=== PATIENT | female | born 1980 ===

== ENCOUNTER 2018-08-20 17:00 | Emergency (ER) | payer SELFPAY ==
--- NOTE | 2018-08-20 19:04 | OBDCSUM ---
Datetime: 08/20/2018 18:22 Discharged to, Provider: Home Follow up at, Provider: [facility] Disch Instr Activity: Normal activity Disch Instr Diet: Regular Discharge Time: 08/20/2018 18:26 Follow up in weeks, Provider: ultrasound 08/21/18 Disch Referrals: None Discharge Diagnosis Prov Other: NST
--- NOTE | 2018-08-20 19:05 | OBHP ---
Datetime: 08/20/2018 17:13 IP Adm Impression: , intrauterine IP Admit Plan: Observation/Evaluation; Discharge home Admit Comment, IP Provider: 37-year-old at 34.3 EGA presents from [facility] for evaluation a fter a 6/8 score on BPP (-2 for breathing). KURT 22.5. This has been compicated by inc reased LFT's (see below) and GDM uncontrolled with diet (was placed on Metformin today by Dr Stahl). History of preeclampsia, GDM and cholesystasis with previous pregnancies. Denies gush of flush from vagina, vaginal bleeding, new onset edema, headache, change in vision, vomiting and SOB. OBGYN: [facility] - Dr Stahl OBHx: 4xNSVD (,,,) PMH: GDM, pre-e, sabrina Surgical Hx: denies Allergies: denies Family Hx: denies Labs: RPR neg, HIV neg, GC/CL neg AST 270 (07/16) 28 (2/) ALT 320 (07/16) 46 (/) Bili 1.6 (07/16) 0.5 (08/15) Bile Acids 7.9 (07/16) <1.5 (08/15) Alk Phos 201 (07/16) 192 (08/15) PMH: denies PE: Gen: resting comfortably in bed, NAD VS: WNL Ext: no edema CV: RRR Resp: no respiratory distress ROS: all others negative unless otherwise noted in HPI A+P: 37-year-old at 34.3 EGA presents from [facility] for evaluation after a 6/8 score on B PP (-2 for breathing). -NST reactive, Cat I -As per Dr Bobo pt will hve f/u BPP tomorrow -ED precautions given Case seen and discussed with Dr Jorge Luis Almonte PGY1 Addendum by Dr. Kang: I have evaluated the patient independently and I agree with the above. Pelvic Type - PN: Not Done Extremities - PN: Normal Abdomen - PN: Normal Back - PN: Normal Breast - PN: Not Done Lungs - PN: Normal Heart - PN: Not Done Thyroid - PN: Not Done Neurologic - PN: Normal HEENT - PN: Normal General - PN: Normal FHR - Baseline A Provider: 130 Vital Signs Provider: Reviewed; Within Normal Limits IP Chief Complaint: evaluation NICHD Variability Prov Fetus A: Moderate 6-25bpm NICHD Accel Fetus A IP Provider: 15X15 FHR Category Provider Fetus A: Category I NICHD Decel Fetus A IP Provider: None Genitourinary Exam: Not Done DTRs - PN: Not Done
[2018-08-21 02:39] VITALS: BP 106/77; PULSE 93; RESP 18; TEMP 97.4; O2SAT 100
== END 2018-08-20 18:30 | disposition home or self-care (01) ==
LOC: H.EROB2 17:00
DX: O36.8330 Maternal care for abnormalities of the fetal heart rate or rhythm, third trimester, not applicable or unspecified (principal); Z3A.34 34 weeks gestation of pregnancy; O24.419 Gestational diabetes mellitus in pregnancy, unspecified control

== ENCOUNTER 2018-09-02 15:43 | Emergency (ER) | payer SELFPAY ==
[2018-09-02 16:09] VITALS: BMI 28.3
[2018-09-02] MEDS ORDERED: Betamethasone Soluspan 30 mg/5mL Inj Susp IM ONE (16:46)
--- NOTE | 2018-09-02 18:07 | OBHP ---
Datetime: 09/02/2018 17:16 IP Adm Impression: , intrauterine ; No Active Labor; Intact Membranes IP Chief Complaint Other: Betamethasone shot IP Admit Plan: Observation/Evaluation; Discharge home Admit Comment, IP Provider: Farzana: [id number] 37 y/o at EGA of 36.2 weeks based on LMP of 01/24/18, KALI 09/28/18 presented to OB ED instru cted to come by Dr. Stahl for a steroid shot, pt has a hx of cholestasis in and Gest DM. D enies vaginal bleeding, LOF or contractions. Reports good movement. Denies headaches, blurry v ision, chest pain, SOB, dizziness, nausea, vomiting, diarrhea, constipation or dysuria. Provider: Dr. Stahl [facility] PMHx: Cholestasis of , Gest DM Meds: PNV, Metformin 500mg BID, unknown name of medication for cholestasis (Actigal BID- based on record) FMHx: Uncles-DM Allergies: NKDA SurgHx: Denies SOCHx: Denies Smoking/Tobacco/Drugs use OBGYN: Gest DM, No hx of STD's, last pap done with reports normal 4 [2010, 2012, 2014, (2017-GDM, Cholestasis)] Labs: HIV, HBSAg, GBS, GC, CHL, RPR all negative. Rubella unknown, h/o PPD pos CXR at 28 wks- Nega tive Assessment 37 y/o at EGA of 36.2 weeks based on LMP of 01/24/18, KALI 09/28/18 presented to OB ED instru cted to come by Dr. Stahl for a steroid shot Plan: -Betamethasone 12mg IM injection x1 -Accucheck 79 -Monitor FHR tracing 150's, moderate variability, 15x15 accelerations, no decels -Pt has an appt with Dr stahl tomorrow at 1pm, instrructed to return to ED after clinic appt mathew rrow for second steroid shot Case reviewed and discussed with attending Danielle Mckeon PGY1 Addendum by Dr. Kang: I have evaluated the patient independently and I agree with the above Extremities - PN: Normal Lungs - PN: Normal Heart - PN: Normal HEENT - PN: Normal General - PN: Normal FHR - Baseline A Provider: 150's Comments, ACOG Physical Exam: GEN: Lying in bed NAD HEENT: NCAT CARD: RRR + S1S2 RESP: CTA, no wheezing, rales or rhonchi GI: Gravid, + BS, no tenderness to palpation EXT: Excoriation scabs from itching cholestasis rash B/L UE and LE. No edema, no calf tenderness Monitor FHR tracing 150's, moderate variability, 15x15 accelerations, no decels Speculum not performed IP Hx Assessment: The History has been Reviewed and is Current EGA AdmitDate IP: 36.2 Vital Signs Provider: Reviewed; Within Normal Limits IP Chief Complaint: Other NICHD Variability Prov Fetus A: Moderate 6-25bpm NICHD Accel Fetus A IP Provider: 15X15 FHR Category Provider Fetus A: Category I NICHD Decel Fetus A IP Provider: None
--- NOTE | 2018-09-02 18:11 | OBDCSUM ---
Datetime: 09/02/2018 17:13 Discharged to, Provider: Home Follow up at, Provider: Dr. Price [facility] Disch Instr Activity: Normal activity Disch Instr Diet: Regular Discharge Time: 09/02/2018 17:13 Follow up in weeks, Provider: 09/03/2018 at 1300 Discharge Diagnosis Prov Other: Encounter for preventative care, 36 weeks, cholestasis of pregnacny
[2018-09-02 21:47] VITALS: BP 120/76; PULSE 80; RESP 18; TEMP 98.2; O2SAT 100
== END 2018-09-02 17:22 | disposition home or self-care (01) ==
LOC: H.EROB2 15:43
DX: O26.613 Liver and biliary tract disorders in pregnancy, third trimester (principal); O24.419 Gestational diabetes mellitus in pregnancy, unspecified control; Z3A.36 36 weeks gestation of pregnancy; Z23 Encounter for immunization
CPT/HCPCS: 82948; 96372; 99281; J0702

== ENCOUNTER → 2018-09-03 | Emergency (ER) | payer SELFPAY ==
[~2018-09-03] MED LIST: Betamethasone Soluspan 30 mg/5mL Inj Susp IM ONE
[2018-09-03 17:17] VITALS: BMI 29.2
== END | disposition home or self-care (01) ==
LOC: H.EROB2 17:09
DX: O26.613 Liver and biliary tract disorders in pregnancy, third trimester (principal); Z23 Encounter for immunization; Z3A.36 36 weeks gestation of pregnancy
CPT/HCPCS: 96372; 99281; J0702

== ENCOUNTER 2018-09-05 22:57 | Inpatient (IN) | payer MEDICAID, SELFPAY ==
[2018-09-03 17:17] VITALS: BMI 29.2
--- NOTE | 2018-09-05 23:37 | OBHP ---
Datetime: 09/03/2018 17:41 IP Adm Impression: , intrauterine ; No Active Labor IP Chief Complaint Other: Betamethasone shot IP Admit Plan: Observation/Evaluation; Discharge home Admit Comment, IP Provider: Pt is a 37 y/o at EGA of 36.3 weeks based on LMP of 01/24/18, KALI 09/28/18 presented to OB ED instructed to come by Dr. Stahl for a 2nd steroid shot, pt has a hx of c holestasis in and Gest DM. Denies vaginal bleeding, LOF or contractions. Reports good movement. Denies headaches, blurry vision, chest pain, SOB, dizziness, nausea, vomiting, diarrhea, constipation or dysuria. Provider: Dr. Stahl [facility] PMHx: Cholestasis of , Gest DM Meds: PNV, Metformin 500mg BID, unknown name of medication for cholestasis (Actigal BID- based on record) FMHx: Uncles-DM Allergies: NKDA SurgHx: Denies SOCHx: Denies Smoking/Tobacco/Drugs use OBGYN: Gest DM, No hx of STD's, last pap done with reports normal 4 [2010, 2012, 2014, (2017-GDM, Cholestasis)] Labs: HIV, HBSAg, GBS, GC, CHL, RPR all negative. Rubella unknown, h/o PPD pos CXR at 28 wks- Nega tive Assessment 37 y/o at EGA of 36.3 weeks based on LMP of 01/24/18, KALI 09/28/18 presented to OB ED instru cted to come by Dr. Stahl for a 2nd steroid shot Plan: -Betamethasone 12mg IM injection x1 -Monitor FHR tracing 150's, moderate variability, 15x15 accelerations, no decels -D/c and follow up with Dr. Stahl next week Case reviewed and discussed with attending Danielle Mckeon PGY1 OB Hospitalist note. Pt seen and examiend with PGY1 Agree with note. She is comfortable. feels n o CTX and she feels +FM MAHNDO Extremities - PN: Normal Abdomen - PN: Normal Lungs - PN: Normal Heart - PN: Normal HEENT - PN: Normal General - PN: Normal FHR - Baseline A Provider: 150's Comments, ACOG Physical Exam: GEN: Lying in bed NAD HEENT: NCAT CARD: RRR + S1S2 RESP: CTA, no wheezing, rales or rhonchi GI: Gravid, + BS, no tenderness to palpation EXT: Excoriation scabs from itching cholestasis rash B/L UE and LE. No edema, no calf tenderness Monitor FHR tracing 150's, moderate variability, 15x15 accelerations, no decels Speculum not performed IP Hx Assessment: The History has been Reviewed and is Current EGA AdmitDate IP: 36.3 Vital Signs Provider: Reviewed; Within Normal Limits IP Chief Complaint: Other NICHD Variability Prov Fetus A: Moderate 6-25bpm NICHD Accel Fetus A IP Provider: 15X15 FHR Category Provider Fetus A: Category I NICHD Decel Fetus A IP Provider: None
[2018-09-06 01:53] LABS: BASO # 0.1 K/uL (0.0-0.2); BASO % 1.5 % (0.0-2.0); EOS # 0.1 K/uL (0.0-0.7); EOS % 0.7 % (0.0-4.0); LYMPH # 1.8 K/uL (1.0-4.3); LYMPH % 19.4 % (20.0-40.0); MEAN CELL VOLUME 76.5 fl (81.0-99.0); MEAN CORPUSCULAR HEMOGLOBIN 24.7 pg (27.0-31.0); MEAN CORPUSCULAR HGB CONC 32.2 g/dL (33.0-37.0); MEAN PLATELET VOLUME 9.9 fl (7.2-11.7); MONO # 0.6 K/uL (0.0-0.8); MONO % 7.1 % (0.0-10.0); NEUT # 6.5 K/uL (1.8-7.0); NEUT % 71.3 % (50.0-75.0); NRBC % 0.2 % (0.0-0.0); RBC 4.04 Mil/uL (3.80-5.20); RED CELL DISTRIBUTION WIDTH 15.8 % (11.5-14.5); WHITE BLOOD COUNT 9.2 K/uL (4.8-10.8)
[2018-09-06] MEDS ORDERED: OXYTOCIN/0.9 % NS 20 UNIT/1,000 ML BAG IV ONE (09:40)
[2018-09-06] MEDS ORDERED: Oxytocin 30 UNIT in NS 500 ml 30 UNITS/500 ML BAG IV ONE ×2 (09:40→13:22)
--- NOTE | 2018-09-06 13:21 | OBPN ---
Datetime: 09/06/2018 13:16 IP Progress Impression Other: GDM/ ICP IP Procedures: Sterile Vag Exam IP Progress Plan: Induction Membranes, Provider: Intact Contraction Comments Provider: irreg FHR - Baseline A Provider: 140's IP Progress Note Comment: 37 yo at 36+6 wks w/ GDM and ICP, for induction of labor s/p cytot ec x 2 FHT reassuring, GBS negative Will start pitocin Vital Signs Provider: Reviewed NICHD Accel Fetus A IP Provider: 15X15 NICHD Variability Prov Fetus A: Moderate 6-25bpm Dilatation, Provider: 3-4 Effacement, Provider: 65 Station, Provider: -2 NICHD Decel Fetus A IP Provider: None Datetime: 09/06/2018 00:57 Gestation - Est Wks by US: 36.6 FHR Category Provider Fetus A: Category I
[2018-09-06] MEDS: Lactated Ringer's 1,000 ML IV SCH ×2 (13:45→20:00)
[2018-09-06] MEDS ORDERED: Lactated Ringer's 1,000 ML IV SCH (18:45)
[2018-09-06] MEDS ORDERED: Bupivacaine HCl 0.5% PF (30 ml) Inj ONE (19:43)
[2018-09-06] MEDS ORDERED: Fentanyl/Bupivacaine HCl 250 ML EPI ONE (20:20)
[2018-09-07] MEDS ORDERED: Oxycodone/Acetaminophen 5/325 mg Tab PO PRN ×2 (00:18→03:39)
[2018-09-07] MEDS ORDERED: Benzocaine/Menthol SPRAY TOP PRN ×2 (00:18→03:39)
--- NOTE | 2018-09-07 00:33 | OBDS ---
MATERNAL INFORMATION Provider Comments: 37 year old admitted for IOL secondary to GDM and cholestasis of . Progressed to normal spontaneous vaginal delivery at 37.0 weeks of live female infact, position EBENEZER o loren intact perineum with epidural anesthesia. Infant placed on maternal abdomen and delayed cord clam ping was performed. No excessive resuscitation required, Apgras 9 _ 9. No meconium or nuchal cord. Sp ontaneous delivery of placenta with 3-vessel cord. No lacerations. QBL 50cc. Mom and baby are in stab le condition and will be transferred to . Lory Swenson MD OB Fellow OB Hospitalist Addendum: I was present for this delivery. (ES) LABOR SUMMARY EDC: 09/28/2018 00:00 No. Babies in Womb: 1 LABOR INFORMATION Cervical Ripening Agents: Cytotec @ 25 Group B Beta Strep: Negative MEMBRANES Membranes Rupture Method: Artificial Amniotic Fluid Color: Clear Amniotic Fluid Amount: Large Amniotic Fluid Odor: Normal VAGINAL DELIVERY Laceration Extension: N/A Laceration Type: None Sponge Count Correct: Yes PRESENTATION/POSITION BABY A Presentation: Cephalic
--- NOTE | 2018-09-07 11:14 | OBPPN ---
Datetime: 09/07/2018 05:58 PP Pain Prov: Within normal limits PP Nausea Prov: Denies PP Flatus Prov: No PP BM Prov: No PP Heart Prov: Normal PP Lungs Prov: Normal PP Abdomen/Uterus Prov: Normal PP Lochia Prov: Normal PP Extremities Prov: Normal PP Impression Prov: Normal progression PP Plan Prov: Continue present management PP Progress Note Prov: 37 y/o PPD0 s/p was seen and examined this AM. + . Loc hia like menses. -BM, -Flatus. Denied f/c/n/v/cp or sob. PE: Gen: patient asleep breathing comfortably Cardio: s1s2 RRR Lungs: cta b/l Abd: Fundus @ umbilicus, appropriate tenderness, no rigidity, no guarding Ext: calves nontender A/P: 37 y/o , clinically stable, PPD0 s/p -Continue to ambulate -Continue -Pain med regimen -Anticipated dc date 09/09/18 -Case discussed with attending -Nita Salgado, PGy-[address] green: I have evaluated the patient independently and I agree with the above IP PP Procedures: None Vital Signs Provider PP: Reviewed
[2018-09-08 08:03] LABS: BASO # 0.1 K/uL (0.0-0.2); BASO % 1.3 % (0.0-2.0); EOS # 0.3 K/uL (0.0-0.7); EOS % 3.2 % (0.0-4.0); HEMOGLOBIN 10.1 g/dL (12.0-16.0); LYMPH # 2.6 K/uL (1.0-4.3); LYMPH % 30.8 % (20.0-40.0); MEAN CELL VOLUME 76.5 fl (81.0-99.0); MEAN CORPUSCULAR HEMOGLOBIN 24.9 pg (27.0-31.0); MEAN CORPUSCULAR HGB CONC 32.6 g/dL (33.0-37.0); MEAN PLATELET VOLUME 9.8 fl (7.2-11.7); MONO # 0.7 K/uL (0.0-0.8); MONO % 8.2 % (0.0-10.0); NEUT # 4.8 K/uL (1.8-7.0); NEUT % 56.5 % (50.0-75.0); NRBC % 0.1 % (0.0-0.0); RBC 4.04 Mil/uL (3.80-5.20); RED CELL DISTRIBUTION WIDTH 15.9 % (11.5-14.5); WHITE BLOOD COUNT 8.6 K/uL (4.8-10.8)
--- NOTE | 2018-09-08 08:39 | OBPPN ---
Datetime: 09/08/2018 07:40 PP Pain Prov: Abnormal PP Nausea Prov: Denies PP Flatus Prov: Yes PP BM Prov: No PP Breasts Prov: Not Done PP Heart Prov: Normal PP Lungs Prov: Normal PP Abdomen/Uterus Prov: Normal PP Lochia Prov: Normal PP Vulva/Perineum Prov: Normal PP CVA Tenderness Prov: Normal PP Extremities Prov: Normal PP C/S Incision Prov: Not Applicable PP Progress Prov: Normal PP Impression Prov: Normal progression PP Plan Prov: Continue present management PP Progress Note Prov: 37 y/o PPD0 s/p was seen and examined this AM, PPD 1. + Breastfeedi ng. Lochia like menses. Tolerating regular diet. -BM, +Flatus. Denied f/c/n/v/cp or sob. PE: Gen: patient asleep breathing comfortably Cardio: s1s2 RRR Lungs: cta b/l Abd: Fundus @ umbilicus, appropriate tenderness, no rigidity, no guarding Ext: calves nontender A/P: 37 y/o , clinically stable, PPD1 s/p -Continue to ambulate -Continue -Pain med regimen -Anticipated dc date 09/09/18 -Otilia Ramachandran, PGY-1 OB Hospitalist Addendum: Pt seen and examined by me. Agree w/ above. PPD 1 s/p , doing well, breast and bottle feeding. Continue current management. (ES) IP PP Procedures: None
[2018-09-09] MEDS ORDERED: Measles, Mumps, and Rubella 0.5 ML VIAL SC ONE (08:53)
[2018-09-09] MEDS ORDERED: Prenatal Multivit/Folic Acid/Iron Tab PO SCH (09:00)
--- NOTE | 2018-09-09 10:25 | OBPPN ---
Datetime: 09/09/2018 07:15 PP Pain Prov: Within normal limits PP Nausea Prov: Denies PP Flatus Prov: Yes PP BM Prov: Yes PP Heart Prov: Normal PP Lungs Prov: Normal PP Abdomen/Uterus Prov: Normal PP Lochia Prov: Normal PP Extremities Prov: Normal PP C/S Incision Prov: Not Applicable PP Progress Prov: Normal PP Comments Phys Exam Prov: GEN: Lying in bed NAD HEENT: NCAT CARD: RRR + S1S2 RESP: CTA, no wheezing, rales or rhonchi GI: + BS, nontender to palpation, Fundus firm below umbilicus EXT: No edema, no calf tenderness PP Impression Prov: Normal progression PP Plan Prov: Discharge PP Progress Note Prov: Voyce:[id number] 37 y/o PPD2 s/p was seen and examined at bedside this AM. Pain controlled well with medi cation. Breast and bottle feeding. Lochia like menses. Tolerating regular diet. +BM, +Flatus. Denied f/c/n/v/cp or sob. PE: Gen: NAD Cardio: + s1s2 RRR Lungs: cta b/l, no wheezes, rales or rhonchi Abd: Fundus below umbilicus, non tender to palpation, + BS throughout Ext: no edema, calves nontender H/H: aCBC: 04/30.9 pCBC:10.07/31.9 A/P: 37 y/o , clinically stable, PPD2 s/p on 09/07/18 -D/C home today -Regular diet -Encourage and ambulating -Ibuprofen 600mg q6 for pain # 30 -Emailed shant for Post and appts Case reviewed and discussed with attending Danielle Mckeon, PGY [address] Kang: I have evaluated the patient independently and I agree with the above IP PP Procedures: None Vital Signs Provider PP: Reviewed; Within Normal Limits
--- NOTE | 2018-09-09 10:27 | OBDCSUM ---
Datetime: 09/09/2018 07:24 Discharged to, Provider: Home Follow up at, Provider: [facility] Disch Instr Activity: Normal activity Disch Instr Diet: Regular Discharge Instructions, Provider: Routine instructions given Discharge Diagnosis, Provider: Term Delivered Discharge Time: 09/09/2018 07:24 Follow up in weeks, Provider: 2-3 days new born 4-6wks PP Contraception discussed, Prov: Yes Disch Activity Restrictions: Minimize stair-climbing; No sexual activity; Nothing in vagina - Interc ourse, tampons, douche Discharge Comment, Provider: Encourage PNV 1 tab po q/day Ibuprofen 600 mg 1 tab po prn q4-6 if moderate pain #30. NO REFILL. Ambulatory with caution, nothing per vagina/sex for 4 weeks, no heavy lifting, avoid stairs, if ex cessive bleeding or fever without relief from Tylenol go to ED F/U at [facility] in 2-3 days for appt and 4-6 weeks for post appt Emailed Contraception after Delivery: Control Pill/Patch
[2018-09-09 20:35] VITALS: BP 112/66; PULSE 64; RESP 20; TEMP 97.7; O2SAT 98
== END 2018-09-09 15:40 | disposition home or self-care (01) | DRG 560 ==
LOC: H.EROB2 22:57 → H.L&D 23:50 → H.OB/GYN 09-07 05:00 → UNDODISIN 09-09 14:55
PROVIDERS: ADMIT Obstetrics & Gynecology; ATTEND Obstetrics & Gynecology
PROC: 4A1HXCZ Monitoring of Products of Conception, Cardiac Rate, External Approach (ICD-10-PCS; 2018-09-05)
PROC: 10E0XZZ Delivery of Products of Conception, External Approach (ICD-10-PCS; principal; 2018-09-07)
DX: O24.429 Gestational diabetes mellitus in childbirth, unspecified control (principal); K83.1 Obstruction of bile duct; O60.23X1 Term delivery with preterm labor, third trimester, fetus 1; O26.62 Liver and biliary tract disorders in childbirth; Z3A.37 37 weeks gestation of pregnancy; Z37.0 Single live birth